=== PATIENT | male | born 1965 | race Caucasian/White ===

== ENCOUNTER 2022-03-09 07:31 | Inpatient (IN) ==
[2022-03-09] MEDS ORDERED: *HR* Heparin 5,000 UNIT/ML VIAL IVP ONE ×2 (07:35→10:27)
[2022-03-09] MEDS ORDERED: *HR* Heparin 5,000 UNIT/ML VIAL IVP PRN ×4 (07:35→10:27)
[2022-03-09] MEDS ORDERED: *HR* Ticagrelor 90 MG TABLET PO ONE (07:35)
[2022-03-09] MEDS ORDERED: *HR* Atropine Sulfate 1 MG/10 ML SYRINGE ONE (07:39)
[2022-03-09] MEDS ORDERED: *HR* Midazolam HCl 2 MG/2 ML VIAL ONE ×3 (07:39→12:13)
[2022-03-09] MEDS ORDERED: *HR* FentaNYL (PF) 100 MCG/2 ML VIAL ONE ×5 (07:39→19:12)
[2022-03-09] MEDS ORDERED: *HR* FentaNYL (PF) 100 MCG/2 ML VIAL IVP ONE (07:44)
[2022-03-09] MEDS ORDERED: Ipratropium/Albuterol Neb 3 ML ONE (07:44)
[2022-03-09] MEDS ORDERED: Ipratropium/Albuterol Neb 3 ML IH ONE (07:44)
[2022-03-09] MEDS ORDERED: Heparin 25,000UNIT/250ML 1/2NS 25,000 UNIT/250 ML IV.SOLN IVC SCH (07:45)
[2022-03-09] MEDS ORDERED: *HR* Ticagrelor 90 MG TABLET ONE (07:49)
[2022-03-09 07:55] LABS: Basophils # 0.1 K/mcL (0.0-0.2); Basophils % 0.7 %; Eosinophils # 0.4 K/mcL (0.0-0.6); Eosinophils % 2.6 %; Hematocrit 50.6 % (37.5-50.1); Hemoglobin 16.5 g/dL (12.9-16.9); Immature Granulocytes % 0.4 % (0-4); Lymphocytes # 4.2 K/mcL (0.6-4.6); Lymphocytes % 25.4 %; Mean Corpuscular HGB Conc 32.6 g/dL (31.6-35.5); Mean Corpuscular Hemoglobin 32.7 pg (28.0-33.3); Mean Corpuscular Volume 100.4 fL (83.0-100.0); Mean Platelet Volume 9.2 fL (9.4-12.4); Monocytes # 1.1 K/mcL (0.0-1.3); Monocytes % 6.7 %; Neutrophils # 10.7 K/mcL (1.6-8.9); Platelet Count 403 K/mcL (140-400); Red Blood Count 5.04 M/mcL (4.19-5.50); Red Cell Distribution Width 14.1 % (11.5-14.5); Segmented Neutrophils % 64.2 %; White Blood Count 16.6 K/mcL (4.3-11.1)
[2022-03-09 08:05] LABS: Activated Partial Thrombo Time 35.6 Seconds (26.0-36.0)
[2022-03-09] MEDS ORDERED: Tirofiban 12.5 MG/250ML 12.5 MG/250 ML BAG ONE (08:06)
[2022-03-09] MEDS ORDERED: D5% in Water 1,000 ML IVC ONE (08:11)
[2022-03-09 08:38] LABS: BUN/Creatinine Ratio 11 (6-26); Blood Urea Nitrogen 9 mg/dL (6-20); Calcium 8.7 mg/dL (8.6-10.3); Carbon Dioxide 28 mEq/L (23-29); Chloride 105 mEq/L (98-107); Glucose 126 mg/dL (70-105); Magnesium 1.8 mg/dL (1.6-2.6); Osmolality,Calculated 288 (280-300); Potassium 4.3 mEq/L (3.5-5.1); Sodium 139 mEq/L (136-145)
[2022-03-09] MEDS ORDERED: niCARdipine 20 MG/200 ML MLS IVC ONE (08:46)
[2022-03-09] MEDS ORDERED: Iopamidol - 370 200 ML INFUS..BTL ONE ×4 (08:53→14:11)
[2022-03-09 09:35] LABS: Troponin I 0.28 ng/mL (< 0.04)
[2022-03-09] MEDS ORDERED: Heparin 1,000 UNITS/500 mL 500 ML ONE ×5 (09:40→15:28)
[2022-03-09] MEDS ORDERED: 0.9 % Sodium Chloride 1,000 ML ONE ×4 (10:04→12:39)
[2022-03-09] MEDS ORDERED: Amiodarone Premix 150 MG/100 ML BAG IVPB ONE (10:08)
[2022-03-09] MEDS ORDERED: Tirofiban 12.5 MG/250ML 12.5 MG/250 ML BAG IVC SCH (10:30)
[2022-03-09] MEDS ORDERED: *HR* Heparin 10,000 UNIT/10 ML VIAL ONE ×2 (12:13→13:39)
[2022-03-09] MEDS ORDERED: Nitroglycerin 1,000 MCG/5 ML VIAL IV ONE (12:13)
[2022-03-09] MEDS ORDERED: Ondansetron 4 MG/2 ML VIAL ONE (12:37)
[2022-03-09] MEDS ORDERED: *HR* Rocuronium Bromide 50 MG/5 ML VIAL ONE ×2 (15:08→16:13)
[2022-03-09] MEDS ORDERED: *HR* Succinylcholine 200 MG/10 ML VIAL IVP ONE (15:08)
[2022-03-09] MEDS ORDERED: EPINEPHrine 1 MG/ML VIAL ONE (15:08)
[2022-03-09] MEDS ORDERED: *HR* Heparin 5,000 UNIT/ML VIAL ONE ×2 (15:23→17:21)
[2022-03-09] MEDS ORDERED: Albumin Human 5% 25.0 GM/500 ML IV.SOLN ONE (15:23)
[2022-03-09] MEDS ORDERED: *HR* Remifentanil 1 MG VIAL IVP ONE (15:26)
[2022-03-09] MEDS ORDERED: *HR* Midazolam HCl 5 MG/5 ML VIAL IVP ONE (15:28)
[2022-03-09] MEDS ORDERED: *HR* Etomidate 40 MG/20 ML VIAL IVP ONE (15:31)
[2022-03-09] MEDS ORDERED: CeFAZolin Syr 2,000MG/20 ML 2,000 MG/20 ML SYRINGE IVPB ONE (16:00)
[2022-03-09 16:45] LABS: ABG Base Excess -6 mEq/L (-2 to 3); ABG Chloride 108 mEq/L (98-107); ABG Glucose 130 mg/dL (60-95); ABG HCO3 20 mEq/L (21-27); ABG Ionized Calcium 1.22 mmol/L (1.15-1.35); ABG Oxygen Saturation 93 % (95-98); ABG PCO2 43 mmHg (35-45); ABG PH 7.29 pH Units (7.32-7.45); ABG PO2 77 mmHg (85-104); ABG TCO2 22 mEq/L (20-26)
[2022-03-09] MEDS ORDERED: *HR* HYDROmorphone PF 0.5 MG/0.5 ML SYRINGE IVP PRN (18:22)
[2022-03-09 18:33] LABS: ABG Base Excess -5 mEq/L (-2 to 3); ABG Chloride 109 mEq/L (98-107); ABG Glucose 131 mg/dL (60-95); ABG HCO3 21 mEq/L (21-27); ABG Ionized Calcium 1.17 mmol/L (1.15-1.35); ABG Oxygen Saturation 99 % (95-98); ABG PCO2 42 mmHg (35-45); ABG PH 7.32 pH Units (7.32-7.45); ABG PO2 138 mmHg (85-104); ABG TCO2 23 mEq/L (20-26)
[2022-03-09] MEDS ORDERED: Sugammadex Sodium 200 MG/2 ML VIAL IV ONE (19:16)
[2022-03-09] MEDS ORDERED: *HR* Norepinephrine 4 MG/4 ML VIAL IVC ONE (20:04)
[2022-03-09] MEDS ORDERED: Ondansetron 4 MG/2 ML VIAL IVP PRN (20:08)
[2022-03-09 20:27] LABS: ABG Base Excess -7 mEq/L (-2 to 3); ABG HCO3 17 mEq/L (21-27); ABG Oxygen Saturation 87 % (95-98); ABG PCO2 29 mmHg (35-45); ABG PH 7.37 pH Units (7.32-7.45); ABG PO2 53 mmHg (85-104); ABG TCO2 18 mEq/L (20-26)
[2022-03-09 20:43] LABS: Basophils # 0.1 K/mcL (0.0-0.2); Basophils % 0.3 %; Hematocrit 35.8 % (37.5-50.1); Hemoglobin 11.7 g/dL (12.9-16.9); Immature Granulocytes % 0.6 % (0-4); Lymphocytes # 3.5 K/mcL (0.6-4.6); Lymphocytes % 16.3 %; Mean Corpuscular HGB Conc 32.7 g/dL (31.6-35.5); Mean Corpuscular Hemoglobin 32.8 pg (28.0-33.3); Mean Corpuscular Volume 100.3 fL (83.0-100.0); Mean Platelet Volume 9.4 fL (9.4-12.4); Monocytes # 1.9 K/mcL (0.0-1.3); Monocytes % 8.8 %; Neutrophils # 15.9 K/mcL (1.6-8.9); Platelet Count 314 K/mcL (140-400); Red Blood Count 3.57 M/mcL (4.19-5.50); White Blood Count 21.6 K/mcL (4.3-11.1)
[2022-03-09 20:44] LABS: ABG Ionized Calcium 1.29 mmol/L (1.15-1.35)
[2022-03-09 20:51] LABS: INR 1.1; Prothrombin Time 11.8 Seconds (9.4-12.1)
[2022-03-09 20:54] LABS: Activated Partial Thrombo Time 51.6 Seconds (26.0-36.0)
[2022-03-09 21:01] LABS: BUN/Creatinine Ratio 14 (6-26); Blood Urea Nitrogen 10 mg/dL (6-20); Calcium 8.7 mg/dL (8.6-10.3); Carbon Dioxide 18 mEq/L (23-29); Chloride 111 mEq/L (98-107); Glucose 123 mg/dL (70-105); Magnesium 1.6 mg/dL (1.6-2.6); Osmolality,Calculated 288 (280-300); Potassium 4.5 mEq/L (3.5-5.1); Sodium 139 mEq/L (136-145)
[2022-03-09] MEDS: *HR* Ticagrelor 90 MG TABLET PO SCH ×2 (22:02→22:04)
[2022-03-09] MEDS ORDERED: Metoclopramide 10 MG/2 ML VIAL IVP ONE (22:23)
[2022-03-09] MEDS ORDERED: Morphine Sulfate 2 MG/ML SYRINGE IVP ONE (22:56)
[2022-03-09] MEDS: Heparin 25,000UNIT/250ML 1/2NS 25,000 UNIT/250 ML IV.SOLN IVC SCH (23:40)
[2022-03-10] MEDS ORDERED: *HR* HYDROcodone/Acet 5/325 mg TABLET PO ONE (03:09)
[2022-03-10] MEDS: *HR* Ticagrelor 90 MG TABLET PO SCH ×4 (03:17→20:39)
[2022-03-10 05:42] LABS: Basophils # 0.1 K/mcL (0.0-0.2); Basophils % 0.3 %; Eosinophils % 0.1 %; Hematocrit 33.1 % (37.5-50.1); Immature Granulocytes % 0.5 % (0-4); Lymphocytes # 2.3 K/mcL (0.6-4.6); Mean Corpuscular HGB Conc 33.2 g/dL (31.6-35.5); Mean Corpuscular Hemoglobin 33.2 pg (28.0-33.3); Mean Platelet Volume 9.8 fL (9.4-12.4); Monocytes # 1.7 K/mcL (0.0-1.3); Monocytes % 9.3 %; Neutrophils # 13.8 K/mcL (1.6-8.9); Platelet Count 269 K/mcL (140-400); Red Blood Count 3.31 M/mcL (4.19-5.50); Red Cell Distribution Width 14.3 % (11.5-14.5); Segmented Neutrophils % 76.8 %; White Blood Count 17.9 K/mcL (4.3-11.1)
[2022-03-10 06:03] LABS: BUN/Creatinine Ratio 13 (6-26); Blood Urea Nitrogen 9 mg/dL (6-20); Calcium 8.3 mg/dL (8.6-10.3); Carbon Dioxide 22 mEq/L (23-29); Chloride 109 mEq/L (98-107); Glucose 124 mg/dL (70-105); Osmolality,Calculated 286 (280-300); Potassium 3.8 mEq/L (3.5-5.1); Sodium 138 mEq/L (136-145)
[2022-03-10] MEDS ORDERED: Albuterol 2.5 MG/3 ML NEBULIZER IH PRN ×2 (07:39→10:37)
[2022-03-10] MEDS ORDERED: Albumin Human 5% 12.5 GM/250 ML IV.SOLN IVC SCH ×2 (07:45→10:37)
[2022-03-10] MEDS ORDERED: *HR* OxyCODONE/APAP 5/325 TABLET PO PRN (08:51)
[2022-03-10] MEDS ORDERED: Aspirin 81 MG TAB.CHEW PO SCH (09:00)
[2022-03-10] MEDS ORDERED: *HR* Heparin 5,000 UNIT/ML VIAL IVP PRN ×4 (10:37)
[2022-03-10] MEDS ORDERED: Ondansetron 4 MG/2 ML VIAL IVP PRN (10:37)
[2022-03-10] MEDS ORDERED: Naloxone 0.4 MG/ML INJ IVP PRN (10:37)
[2022-03-10] MEDS: CeFAZolin 2 GM/120 ML BAG IVPB SCH ×2 (12:22→20:38)
[2022-03-10] MEDS: Famotidine 20 MG/2 ML VIAL IVP SCH ×2 (12:23→17:47)
[2022-03-10] MEDS ORDERED: *HR* Ticagrelor 90 MG TABLET PO ONE (13:00)
[2022-03-10] MEDS ORDERED: Furosemide 40 MG/4 ML VIAL IVP ONE ×2 (13:25→20:00)
[2022-03-10] MEDS: *HR* Digoxin 0.5 MG/2 ML AMPUL IVP SCH ×2 (15:42→17:47)
[2022-03-10] MEDS: *HR* OxyCODONE/APAP 5/325 TABLET PO PRN ×2 (18:19→22:24)
[2022-03-10] MEDS: Heparin 25,000UNIT/250ML 1/2NS 25,000 UNIT/250 ML IV.SOLN IVC SCH (20:31)
[2022-03-11] MEDS: *HR* Digoxin 0.5 MG/2 ML AMPUL IVP SCH ×2 (01:27→05:32)
[2022-03-11] MEDS: CeFAZolin 2 GM/120 ML BAG IVPB SCH (04:03)
[2022-03-11] MEDS: Heparin 25,000UNIT/250ML 1/2NS 25,000 UNIT/250 ML IV.SOLN IVC SCH (04:03)
[2022-03-11 05:10] LABS: Heparin anti-factor XA UFH 0.31 IU/mL (0.30-0.70)
[2022-03-11 05:12] LABS: INR 1.2; Prothrombin Time 13.6 Seconds (9.4-12.1)
[2022-03-11 05:20] LABS: Basophils # 0.1 K/mcL (0.0-0.2); Basophils % 0.4 %; Hematocrit 29.3 % (37.5-50.1); Immature Granulocytes % 0.5 % (0-4); Lymphocytes # 2.1 K/mcL (0.6-4.6); Lymphocytes % 9.7 %; Mean Corpuscular HGB Conc 34.1 g/dL (31.6-35.5); Mean Corpuscular Hemoglobin 33.4 pg (28.0-33.3); Mean Platelet Volume 10.5 fL (9.4-12.4); Monocytes # 1.8 K/mcL (0.0-1.3); Monocytes % 8.5 %; Neutrophils # 17.3 K/mcL (1.6-8.9); Platelet Count 240 K/mcL (140-400); Red Blood Count 2.99 M/mcL (4.19-5.50); Red Cell Distribution Width 14.3 % (11.5-14.5); Segmented Neutrophils % 80.9 %; White Blood Count 21.4 K/mcL (4.3-11.1)
[2022-03-11] MEDS: Famotidine 20 MG/2 ML VIAL IVP SCH ×2 (05:32→18:09)
[2022-03-11 05:40] LABS: Alanine Aminotransferase 45 Units/L (7-52); Albumin 3.1 g/dL (3.5-5.7); Albumin/Globulin Ratio 1.6 (1.1-2.2); Alkaline Phosphatase 38 Units/L (34-104); Aspartate Amino Transferase 201 Units/L (13-39); BUN/Creatinine Ratio 17 (6-26); Bilirubin,Total 2.1 mg/dL (0.3-1.0); Blood Urea Nitrogen 11 mg/dL (6-20); Calcium 8.2 mg/dL (8.6-10.3); Carbon Dioxide 22 mEq/L (23-29); Chloride 105 mEq/L (98-107); Chol/HDL Ratio 3.7 (0-4.9); Cholesterol 114 mg/dL (< 200); Glucose 109 mg/dL (70-105); HDL Cholesterol 31 mg/dL (40-59); LDL Cholesterol,Calculated 59 mg/dL (< 100); Osmolality,Calculated 280 (280-300); Potassium 3.9 mEq/L (3.5-5.1); Sodium 135 mEq/L (136-145); Total Protein 5.1 g/dL (6.4-8.9); Triglycerides 119 mg/dL (< 150)
[2022-03-11] MEDS ORDERED: 0.9 % Sodium Chloride 1,000 ML ONE ×7 (07:22→21:50)
[2022-03-11] MEDS: *HR* Ticagrelor 90 MG TABLET PO SCH ×2 (09:17→20:41)
[2022-03-11] MEDS: Aspirin 81 MG TAB.CHEW PO SCH (09:17)
[2022-03-11] MEDS ORDERED: Nitroglycerin 1,000 MCG/5 ML VIAL IV ONE (11:07)
[2022-03-11] MEDS ORDERED: *HR* Heparin 10,000 UNIT/10 ML VIAL ONE (11:07)
[2022-03-11] MEDS ORDERED: Heparin 1,000 UNITS/500 mL 500 ML ONE (11:50)
[2022-03-11] MEDS ORDERED: D5% in Water 250 ML ONE (16:31)
[2022-03-11] MEDS ORDERED: 0.9 % Sodium Chloride 250 ML IVC ONE ×6 (17:53→23:25)
[2022-03-11] MEDS: Acetaminophen 325 MG TABLET PO PRN (18:18)
[2022-03-11] MEDS: Cefepime HCl 2,000 MG in 0.9 % Sodium Chloride 10 ML IVP SCH (18:29)
[2022-03-11 19:09] LABS: Bacteria,Urine Few per hpf (None-Few); Bilirubin,Urine Negative (Negative); Blood,Urine Trace (Negative); Calcium Oxalate Crystals,Urine Present per hpf; Clarity,Urine Clear (Clear); Color,Urine Yellow (Yellow); Glucose,Urine (UA) Normal (Normal); Ketones,Urine 60 mg/dL (Negative); Leukocyte Esterase,Urine Small (Negative); Mucus,Urine Few per lpf (None-Few); Nitrite,Urine Negative (Negative); Protein,Urine Trace mg/dL (Neg-Trace); Specific Gravity,Urine 1.015 (1.010-1.025); Urobilinogen,Urine >=8.0 mg/dL (Normal)
[2022-03-11 19:43] LABS: Influenza A PCR Negative (Negative); Influenza B PCR Negative (Negative); Resp. Syncytial Virus PCR Negative (Negative)
[2022-03-11 19:45] LABS: SARS-CoV-2 by PCR (In House) Positive (Negative)
[2022-03-11] MEDS: *HR* HYDROcodone/Acet 5/325 mg TABLET PO PRN (20:41)
[2022-03-12] MEDS ORDERED: 0.9 % Sodium Chloride 250 ML IVC ONE ×4 (00:39→03:52)
[2022-03-12] MEDS ORDERED: 0.9 % Sodium Chloride 1,000 ML ONE ×2 (01:18→15:40)
[2022-03-12] MEDS: Cefepime HCl 2,000 MG in 0.9 % Sodium Chloride 10 ML IVP SCH ×3 (01:22→17:54)
[2022-03-12] MEDS: Famotidine 20 MG/2 ML VIAL IVP SCH ×2 (05:09→17:54)
[2022-03-12 06:05] LABS: Basophils % 0.3 %; Eosinophils % 0.1 %; Hematocrit 20.5 % (37.5-50.1); Immature Granulocytes % 0.6 % (0-4); Lymphocytes # 1.8 K/mcL (0.6-4.6); Lymphocytes % 13.2 %; Mean Corpuscular HGB Conc 33.7 g/dL (31.6-35.5); Mean Corpuscular Volume 98.1 fL (83.0-100.0); Mean Platelet Volume 10.5 fL (9.4-12.4); Monocytes % 6.9 %; Neutrophils # 10.9 K/mcL (1.6-8.9); Platelet Count 157 K/mcL (140-400); Red Blood Count 2.09 M/mcL (4.19-5.50); Red Cell Distribution Width 14.3 % (11.5-14.5); Segmented Neutrophils % 78.9 %; White Blood Count 13.9 K/mcL (4.3-11.1)
[2022-03-12 06:07] LABS: Hemoglobin 6.9 g/dL (12.9-16.9)
[2022-03-12 07:26] LABS: BUN/Creatinine Ratio 26 (6-26); Blood Urea Nitrogen 8 mg/dL (6-20); Calcium 5.6 mg/dL (8.6-10.3); Carbon Dioxide 15 mEq/L (23-29); Chloride 117 mEq/L (98-107); Glucose 79 mg/dL (70-105); Magnesium 1.1 mg/dL (1.6-2.6); Osmolality,Calculated 281 (280-300); Potassium 2.7 mEq/L (3.5-5.1); Sodium 137 mEq/L (136-145)
[2022-03-12] MEDS: *HR* OxyCODONE Immed Rel 5 MG TABLET PO PRN (07:46)
[2022-03-12] MEDS: Aspirin 81 MG TAB.CHEW PO SCH (07:46)
[2022-03-12] MEDS: *HR* Ticagrelor 90 MG TABLET PO SCH ×2 (07:46→19:54)
[2022-03-12] MEDS: Calcium Gluconate 1gm/50mL 1 GM/50 ML BAG IVPB SCH ×2 (07:46→09:28)
[2022-03-12] MEDS: Heparin 25,000UNIT/250ML 1/2NS 25,000 UNIT/250 ML IV.SOLN IVC SCH ×2 (08:29→19:38)
[2022-03-12] MEDS ORDERED: 0.9 % Sodium Chloride 250 ML IVC PRN (10:14)
[2022-03-12 13:12] LABS: Hematocrit 30.3 % (37.5-50.1)
[2022-03-12 13:16] LABS: Hemoglobin 10.2 g/dL (12.9-16.9)
[2022-03-12 13:18] LABS: VBG Ionized Calcium 1.19 mmol/L (1.15-1.35)
[2022-03-12 14:01] LABS: BUN/Creatinine Ratio 19 (6-26); Blood Urea Nitrogen 10 mg/dL (6-20); Calcium 7.9 mg/dL (8.6-10.3); Carbon Dioxide 22 mEq/L (23-29); Chloride 107 mEq/L (98-107); Glucose 110 mg/dL (70-105); Magnesium 1.9 mg/dL (1.6-2.6); Osmolality,Calculated 278 (280-300); Potassium 3.7 mEq/L (3.5-5.1); Sodium 134 mEq/L (136-145)
[2022-03-12] MEDS ORDERED: Morphine Sulfate 2 MG/ML SYRINGE IVP ONE (19:18)
[2022-03-13] MEDS: Cefepime HCl 2,000 MG in 0.9 % Sodium Chloride 10 ML IVP SCH ×3 (03:54→15:45)
[2022-03-13 04:32] LABS: Basophils % 0.3 %; Eosinophils % 0.3 %; Hematocrit 26.4 % (37.5-50.1); Hemoglobin 9.2 g/dL (12.9-16.9); Immature Granulocytes % 0.7 % (0-4); Lymphocytes # 2.2 K/mcL (0.6-4.6); Lymphocytes % 16.2 %; Mean Corpuscular HGB Conc 34.8 g/dL (31.6-35.5); Mean Corpuscular Hemoglobin 32.4 pg (28.0-33.3); Mean Platelet Volume 10.8 fL (9.4-12.4); Monocytes # 1.1 K/mcL (0.0-1.3); Monocytes % 8.1 %; Neutrophils # 10.3 K/mcL (1.6-8.9); Platelet Count 201 K/mcL (140-400); Red Blood Count 2.84 M/mcL (4.19-5.50); Segmented Neutrophils % 74.4 %; White Blood Count 13.8 K/mcL (4.3-11.1)
[2022-03-13 04:53] LABS: BUN/Creatinine Ratio 16 (6-26); Blood Urea Nitrogen 8 mg/dL (6-20); Calcium 7.6 mg/dL (8.6-10.3); Carbon Dioxide 20 mEq/L (23-29); Chloride 105 mEq/L (98-107); Glucose 95 mg/dL (70-105); Osmolality,Calculated 272 (280-300); Potassium 3.3 mEq/L (3.5-5.1); Sodium 132 mEq/L (136-145); Troponin I 27.58 ng/mL (< 0.04)
[2022-03-13] MEDS: Heparin 25,000UNIT/250ML 1/2NS 25,000 UNIT/250 ML IV.SOLN IVC SCH (05:01)
[2022-03-13] MEDS: Famotidine 20 MG/2 ML VIAL IVP SCH ×2 (05:01→15:44)
[2022-03-13] MEDS: *HR* OxyCODONE Immed Rel 5 MG TABLET PO PRN ×2 (05:28→21:07)
[2022-03-13] MEDS: *HR* Ticagrelor 90 MG TABLET PO SCH ×2 (07:42→19:46)
[2022-03-13] MEDS: Aspirin 81 MG TAB.CHEW PO SCH (07:42)
[2022-03-13] MEDS: carvediloL 6.25 MG TABLET PO SCH ×2 (08:50→15:44)
[2022-03-13] MEDS ORDERED: carvediloL 6.25 MG TABLET PO SCH (17:00)
[2022-03-14] MEDS: Heparin 25,000UNIT/250ML 1/2NS 25,000 UNIT/250 ML IV.SOLN IVC SCH ×2 (00:51→19:08)
[2022-03-14] MEDS: Cefepime HCl 2,000 MG in 0.9 % Sodium Chloride 10 ML IVP SCH ×3 (00:51→17:21)
[2022-03-14] MEDS: *HR* HYDROcodone/Acet 5/325 mg TABLET PO PRN ×3 (03:09→16:13)
[2022-03-14] MEDS: Famotidine 20 MG/2 ML VIAL IVP SCH ×2 (03:10→17:23)
[2022-03-14 04:58] LABS: Basophils # 0.1 K/mcL (0.0-0.2); Basophils % 0.6 %; Eosinophils # 0.2 K/mcL (0.0-0.6); Eosinophils % 1.4 %; Hematocrit 25.8 % (37.5-50.1); Hemoglobin 9.1 g/dL (12.9-16.9); Immature Granulocytes % 0.6 % (0-4); Lymphocytes # 3.1 K/mcL (0.6-4.6); Lymphocytes % 24.8 %; Mean Corpuscular HGB Conc 35.3 g/dL (31.6-35.5); Mean Corpuscular Hemoglobin 32.7 pg (28.0-33.3); Mean Corpuscular Volume 92.8 fL (83.0-100.0); Mean Platelet Volume 10.8 fL (9.4-12.4); Monocytes # 1.3 K/mcL (0.0-1.3); Monocytes % 10.2 %; Neutrophils # 7.7 K/mcL (1.6-8.9); Nucleated Red Blood Cells 0.2 /100 WBC (0); Platelet Count 228 K/mcL (140-400); Red Blood Count 2.78 M/mcL (4.19-5.50); Red Cell Distribution Width 16.1 % (11.5-14.5); Segmented Neutrophils % 62.4 %; White Blood Count 12.3 K/mcL (4.3-11.1)
[2022-03-14 05:10] LABS: BUN/Creatinine Ratio 18 (6-26); Blood Urea Nitrogen 9 mg/dL (6-20); Calcium 7.8 mg/dL (8.6-10.3); Carbon Dioxide 20 mEq/L (23-29); Chloride 104 mEq/L (98-107); Glucose 105 mg/dL (70-105); Osmolality,Calculated 273 (280-300); Potassium 3.2 mEq/L (3.5-5.1); Sodium 132 mEq/L (136-145)
[2022-03-14] MEDS: carvediloL 6.25 MG TABLET PO SCH ×2 (08:25→08:32)
[2022-03-14] MEDS: Aspirin 81 MG TAB.CHEW PO SCH (08:31)
[2022-03-14] MEDS: *HR* Ticagrelor 90 MG TABLET PO SCH ×2 (08:31→19:50)
[2022-03-14] MEDS ORDERED: carvediloL 6.25 MG TABLET PO ONE (18:00)
[2022-03-14] MEDS ORDERED: Chloraseptic Spray 177 ML BOTTLE MM PRN (18:45)
[2022-03-14] MEDS: *HR* OxyCODONE/APAP 5/325 TABLET PO PRN (21:26)
[2022-03-15] MEDS: *HR* HYDROcodone/Acet 5/325 mg TABLET PO PRN (01:54)
[2022-03-15] MEDS: Cefepime HCl 2,000 MG in 0.9 % Sodium Chloride 10 ML IVP SCH ×3 (01:54→17:29)
[2022-03-15] MEDS: Famotidine 20 MG/2 ML VIAL IVP SCH ×2 (05:28→17:30)
[2022-03-15] MEDS: *HR* OxyCODONE/APAP 5/325 TABLET PO PRN ×2 (06:19→14:41)
[2022-03-15 07:37] LABS: BUN/Creatinine Ratio 20 (6-26); Blood Urea Nitrogen 10 mg/dL (6-20); Calcium 8.2 mg/dL (8.6-10.3); Carbon Dioxide 20 mEq/L (23-29); Chloride 105 mEq/L (98-107); Glucose 92 mg/dL (70-105); Osmolality,Calculated 275 (280-300); Potassium 4.4 mEq/L (3.5-5.1); Sodium 133 mEq/L (136-145)
[2022-03-15] MEDS: Metoprolol XL (24 HR) Succ 25 MG TAB.ER.24H PO SCH (08:09)
[2022-03-15] MEDS: *HR* Ticagrelor 90 MG TABLET PO SCH ×2 (08:09→20:51)
[2022-03-15] MEDS: Aspirin 81 MG TAB.CHEW PO SCH (08:10)
[2022-03-15 11:12] LABS: Basophils # 0.1 K/mcL (0.0-0.2); Basophils % 0.7 %; Eosinophils # 0.2 K/mcL (0.0-0.6); Eosinophils % 1.3 %; Hematocrit 28.5 % (37.5-50.1); Hemoglobin 9.5 g/dL (12.9-16.9); Lymphocytes # 3.1 K/mcL (0.6-4.6); Lymphocytes % 22.4 %; Mean Corpuscular HGB Conc 33.3 g/dL (31.6-35.5); Mean Corpuscular Hemoglobin 32.2 pg (28.0-33.3); Mean Corpuscular Volume 96.6 fL (83.0-100.0); Mean Platelet Volume 10.8 fL (9.4-12.4); Monocytes # 1.6 K/mcL (0.0-1.3); Monocytes % 11.4 %; Neutrophils # 8.8 K/mcL (1.6-8.9); Nucleated Red Blood Cells 0.2 /100 WBC (0); Platelet Count 295 K/mcL (140-400); Red Blood Count 2.95 M/mcL (4.19-5.50); Red Cell Distribution Width 16.6 % (11.5-14.5); Segmented Neutrophils % 63.2 %; White Blood Count 13.9 K/mcL (4.3-11.1)
[2022-03-15] MEDS: *HR* OxyCODONE Immed Rel 5 MG TABLET PO PRN (22:23)
[2022-03-16] MEDS: Cefepime HCl 2,000 MG in 0.9 % Sodium Chloride 10 ML IVP SCH ×3 (01:52→18:08)
[2022-03-16 06:55] LABS: BUN/Creatinine Ratio 15 (6-26); Blood Urea Nitrogen 9 mg/dL (6-20); Calcium 8.4 mg/dL (8.6-10.3); Carbon Dioxide 23 mEq/L (23-29); Chloride 103 mEq/L (98-107); Glucose 92 mg/dL (70-105); Osmolality,Calculated 276 (280-300); Potassium 3.8 mEq/L (3.5-5.1); Sodium 134 mEq/L (136-145)
[2022-03-16] MEDS: Aspirin 81 MG TAB.CHEW PO SCH (07:48)
[2022-03-16] MEDS: Metoprolol XL (24 HR) Succ 25 MG TAB.ER.24H PO SCH ×2 (07:48→21:28)
[2022-03-16] MEDS: *HR* Ticagrelor 90 MG TABLET PO SCH ×2 (07:48→21:27)
[2022-03-16] MEDS: Famotidine 20 MG/2 ML VIAL IVP SCH ×2 (07:48→18:08)
[2022-03-16] MEDS: Heparin 25,000UNIT/250ML 1/2NS 25,000 UNIT/250 ML IV.SOLN IVC SCH (07:49)
[2022-03-16] MEDS ORDERED: Furosemide 20 MG TABLET PO PRN (10:07)
[2022-03-16] MEDS: *HR* OxyCODONE/APAP 5/325 TABLET PO PRN ×2 (11:14→21:29)
[2022-03-16] MEDS: Furosemide 20 MG TABLET PO SCH (18:09)
[2022-03-17] MEDS: Cefepime HCl 2,000 MG in 0.9 % Sodium Chloride 10 ML IVP SCH ×3 (01:21→17:27)
[2022-03-17] MEDS: Famotidine 20 MG/2 ML VIAL IVP SCH ×2 (06:43→17:28)
[2022-03-17] MEDS: *HR* Ticagrelor 90 MG TABLET PO SCH ×2 (08:07→20:35)
[2022-03-17] MEDS: Aspirin 81 MG TAB.CHEW PO SCH (08:08)
[2022-03-17] MEDS: Furosemide 20 MG TABLET PO SCH (08:08)
[2022-03-17] MEDS: Metoprolol XL (24 HR) Succ 25 MG TAB.ER.24H PO SCH ×2 (08:08→20:35)
[2022-03-17 09:54] LABS: BUN/Creatinine Ratio 18 (6-26); Blood Urea Nitrogen 11 mg/dL (6-20); Calcium 8.2 mg/dL (8.6-10.3); Carbon Dioxide 20 mEq/L (23-29); Chloride 106 mEq/L (98-107); Glucose 137 mg/dL (70-105); Magnesium 1.8 mg/dL (1.6-2.6); Osmolality,Calculated 282 (280-300); Potassium 3.8 mEq/L (3.5-5.1); Sodium 135 mEq/L (136-145)
[2022-03-17] MEDS: Nicotine 21 MG PATCH.TD24 TD SCH (10:16)
[2022-03-17 10:57] LABS: Basophils # 0.1 K/mcL (0.0-0.2); Basophils % 0.6 %; Eosinophils # 0.2 K/mcL (0.0-0.6); Eosinophils % 1.2 %; Hematocrit 29.2 % (37.5-50.1); Hemoglobin 9.8 g/dL (12.9-16.9); Lymphocytes % 13.9 %; Mean Corpuscular HGB Conc 33.6 g/dL (31.6-35.5); Mean Corpuscular Hemoglobin 32.8 pg (28.0-33.3); Mean Corpuscular Volume 97.7 fL (83.0-100.0); Mean Platelet Volume 10.6 fL (9.4-12.4); Monocytes # 1.8 K/mcL (0.0-1.3); Neutrophils # 10.5 K/mcL (1.6-8.9); Nucleated Red Blood Cells 0.3 /100 WBC (0); Red Blood Count 2.99 M/mcL (4.19-5.50); Red Cell Distribution Width 17.9 % (11.5-14.5); Segmented Neutrophils % 71.3 %; White Blood Count 14.6 K/mcL (4.3-11.1)
[2022-03-17 11:04] LABS: Platelet Count 439 K/mcL (140-400)
[2022-03-17 14:37] LABS: INR 1.2; Prothrombin Time 13.1 Seconds (9.4-12.1)
[2022-03-17] MEDS ORDERED: Warfarin perPT PO PRN (18:00)
[2022-03-17] MEDS ORDERED: *HR* Warfarin 5 MG TABLET PO ONE (18:00)
[2022-03-17] MEDS: Acetaminophen 325 MG TABLET PO PRN (20:44)
[2022-03-18 02:08] LABS: Basophils # 0.1 K/mcL (0.0-0.2); Basophils % 0.6 %; Eosinophils # 0.2 K/mcL (0.0-0.6); Eosinophils % 1.6 %; Hematocrit 30.1 % (37.5-50.1); Immature Granulocytes % 1.1 % (0-4); Lymphocytes # 3.4 K/mcL (0.6-4.6); Lymphocytes % 23.5 %; Mean Corpuscular HGB Conc 33.2 g/dL (31.6-35.5); Mean Corpuscular Hemoglobin 32.7 pg (28.0-33.3); Mean Corpuscular Volume 98.4 fL (83.0-100.0); Mean Platelet Volume 10.3 fL (9.4-12.4); Monocytes # 1.4 K/mcL (0.0-1.3); Monocytes % 9.7 %; Neutrophils # 9.2 K/mcL (1.6-8.9); Nucleated Red Blood Cells 0.2 /100 WBC (0); Platelet Count 538 K/mcL (140-400); Red Blood Count 3.06 M/mcL (4.19-5.50); Red Cell Distribution Width 18.5 % (11.5-14.5); Segmented Neutrophils % 63.5 %; White Blood Count 14.5 K/mcL (4.3-11.1)
[2022-03-18 02:15] LABS: INR 1.2; Prothrombin Time 12.9 Seconds (9.4-12.1)
[2022-03-18 02:29] LABS: BUN/Creatinine Ratio 22 (6-26); Blood Urea Nitrogen 10 mg/dL (6-20); Calcium 8.3 mg/dL (8.6-10.3); Carbon Dioxide 20 mEq/L (23-29); Chloride 107 mEq/L (98-107); Glucose 89 mg/dL (70-105); Magnesium 2.1 mg/dL (1.6-2.6); Osmolality,Calculated 283 (280-300); Potassium 3.8 mEq/L (3.5-5.1); Sodium 137 mEq/L (136-145)
[2022-03-18] MEDS: Famotidine 20 MG/2 ML VIAL IVP SCH ×2 (05:17→18:37)
[2022-03-18] MEDS: Furosemide 20 MG TABLET PO SCH (10:09)
[2022-03-18] MEDS: Nicotine 21 MG PATCH.TD24 TD SCH (10:09)
[2022-03-18] MEDS: Metoprolol XL (24 HR) Succ 25 MG TAB.ER.24H PO SCH ×2 (10:09→20:39)
[2022-03-18] MEDS: Aspirin 81 MG TAB.CHEW PO SCH (10:09)
[2022-03-18] MEDS: *HR* Ticagrelor 90 MG TABLET PO SCH ×2 (10:09→20:38)
[2022-03-18] MEDS ORDERED: HydrOXYzine SYP 10 MG/5 ML UDC PO PRN (12:16)
[2022-03-18] MEDS ORDERED: *HR* Warfarin 5 MG TABLET PO ONE (18:00)
[2022-03-18] MEDS ORDERED: *HR* Warfarin 5 MG TABLET ONE (18:34)
[2022-03-18] MEDS ORDERED: Famotidine 20 MG/2 ML VIAL ONE (18:35)
[2022-03-18] MEDS ORDERED: Metoprolol XL (24 HR) Succ 25 MG TAB.ER.24H PO ONE (19:50)
[2022-03-18] MEDS ORDERED: *HR* Ticagrelor 90 MG TABLET ONE (19:50)
[2022-03-19] MEDS: Famotidine 20 MG/2 ML VIAL IVP SCH ×2 (04:40→17:46)
[2022-03-19 06:39] LABS: INR 1.7; Prothrombin Time 18.9 Seconds (9.4-12.1)
[2022-03-19] MEDS: Aspirin 81 MG TAB.CHEW PO SCH (08:52)
[2022-03-19] MEDS: Metoprolol XL (24 HR) Succ 25 MG TAB.ER.24H PO SCH ×2 (08:52→21:26)
[2022-03-19] MEDS: Nicotine 21 MG PATCH.TD24 TD SCH (08:52)
[2022-03-19] MEDS: *HR* Ticagrelor 90 MG TABLET PO SCH ×2 (08:53→21:40)
[2022-03-19] MEDS: Furosemide 20 MG TABLET PO SCH (08:53)
[2022-03-19] MEDS: *HR* OxyCODONE Immed Rel 5 MG TABLET PO PRN ×2 (12:47→18:51)
[2022-03-19] MEDS: *HR* HYDROcodone/Acet 5/325 mg TABLET PO PRN (17:46)
[2022-03-19] MEDS ORDERED: *HR* Warfarin 3 MG TABLET PO ONE (18:00)
[2022-03-20 01:56] LABS: APTT (LE Anticoag) 56 sec (32-48); Diluted Russell Viper Venom 31 sec (33-44); LE APTT D Heparin Neutralized 47 sec (32-48); LE Coag Reptilase Time 16.8 sec (<=21.9); PT (LE-Anticoag) 13.5 sec (12.0-15.5); Thrombin Time 20.7 sec (14.7-19.5)
[2022-03-20] MEDS: *HR* HYDROcodone/Acet 5/325 mg TABLET PO PRN (05:27)
[2022-03-20] MEDS: Famotidine 20 MG/2 ML VIAL IVP SCH (05:28)
[2022-03-20 06:11] LABS: Basophils # 0.1 K/mcL (0.0-0.2); Basophils % 0.7 %; Eosinophils # 0.4 K/mcL (0.0-0.6); Eosinophils % 2.3 %; Hematocrit 33.8 % (37.5-50.1); Hemoglobin 10.8 g/dL (12.9-16.9); Immature Granulocytes % 1.1 % (0-4); Lymphocytes # 4.1 K/mcL (0.6-4.6); Mean Corpuscular Hemoglobin 32.2 pg (28.0-33.3); Mean Corpuscular Volume 100.9 fL (83.0-100.0); Mean Platelet Volume 9.8 fL (9.4-12.4); Monocytes # 1.3 K/mcL (0.0-1.3); Monocytes % 8.4 %; Neutrophils # 9.7 K/mcL (1.6-8.9); Platelet Count 730 K/mcL (140-400); Red Blood Count 3.35 M/mcL (4.19-5.50); Red Cell Distribution Width 18.5 % (11.5-14.5); Segmented Neutrophils % 61.5 %; White Blood Count 15.8 K/mcL (4.3-11.1)
[2022-03-20 06:18] LABS: INR 2.4; Prothrombin Time 26.2 Seconds (9.4-12.1)
[2022-03-20 06:29] LABS: BUN/Creatinine Ratio 21 (6-26); Blood Urea Nitrogen 13 mg/dL (6-20); Calcium 8.7 mg/dL (8.6-10.3); Carbon Dioxide 24 mEq/L (23-29); Chloride 105 mEq/L (98-107); Glucose 91 mg/dL (70-105); Osmolality,Calculated 280 (280-300); Potassium 3.7 mEq/L (3.5-5.1); Sodium 135 mEq/L (136-145)
[2022-03-20] MEDS: Aspirin 81 MG TAB.CHEW PO SCH (09:24)
[2022-03-20] MEDS: Metoprolol XL (24 HR) Succ 25 MG TAB.ER.24H PO SCH ×2 (09:25→22:13)
[2022-03-20] MEDS: Furosemide 20 MG TABLET PO SCH (09:25)
[2022-03-20] MEDS: Nicotine 21 MG PATCH.TD24 TD SCH (09:26)
[2022-03-20] MEDS: *HR* Ticagrelor 90 MG TABLET PO SCH ×2 (09:40→22:22)
[2022-03-20] MEDS ORDERED: *HR* Warfarin 3 MG TABLET PO ONE (18:00)
[2022-03-20] MEDS: Acetaminophen 325 MG TABLET PO PRN (22:22)
[2022-03-20] MEDS: Famotidine 20 MG TABLET PO SCH (22:22)
[2022-03-21 02:06] LABS: Prothrombin Time 21.7 Seconds (9.4-12.1)
[2022-03-21] MEDS: Furosemide 20 MG TABLET PO SCH (08:01)
[2022-03-21] MEDS: Metoprolol XL (24 HR) Succ 25 MG TAB.ER.24H PO SCH ×2 (08:07→21:55)
[2022-03-21] MEDS: Aspirin 81 MG TAB.CHEW PO SCH (08:07)
[2022-03-21] MEDS: Famotidine 20 MG TABLET PO SCH ×2 (08:07→21:55)
[2022-03-21] MEDS: Nicotine 21 MG PATCH.TD24 TD SCH (08:07)
[2022-03-21] MEDS: *HR* Ticagrelor 90 MG TABLET PO SCH ×2 (08:08→21:55)
[2022-03-21] MEDS: *HR* HYDROcodone/Acet 5/325 mg TABLET PO PRN (11:35)
[2022-03-21] MEDS ORDERED: *HR* HYDROcodone/Acet 5/325 mg TABLET PO PRN (11:46)
[2022-03-21] MEDS ORDERED: *HR* Digoxin 0.5 MG/2 ML AMPUL IVP ONE (17:45)
[2022-03-21] MEDS ORDERED: *HR* Warfarin 4 MG TABLET PO ONE (18:00)
[2022-03-21] MEDS: *HR* Digoxin 0.5 MG/2 ML AMPUL IVP SCH (21:56)
[2022-03-22 02:14] LABS: INR 2.4
[2022-03-22] MEDS: *HR* Digoxin 0.5 MG/2 ML AMPUL IVP SCH (05:40)
[2022-03-22] MEDS: Metoprolol XL (24 HR) Succ 25 MG TAB.ER.24H PO SCH (10:10)
[2022-03-22] MEDS: Aspirin 81 MG TAB.CHEW PO SCH (10:11)
[2022-03-22] MEDS: *HR* Ticagrelor 90 MG TABLET PO SCH (10:11)
[2022-03-22] MEDS: Nicotine 21 MG PATCH.TD24 TD SCH (10:11)
[2022-03-22] MEDS: Famotidine 20 MG TABLET PO SCH (10:12)
[2022-03-22] MEDS: Furosemide 20 MG TABLET PO SCH (10:20)
[2022-03-22 12:36] VITALS: BP 88/60; PULSE 103; TEMP 98; O2SAT 95
[2022-03-22] MEDS ORDERED: *HR* Warfarin 4 MG TABLET PO ONE (18:00)
== END 2022-03-22 13:55 | DRG 270 ==
LOC: EMEROOARM 07:31 → ICNU 07:51 → SUATTDRO 10:41 → 2NNU 03-15 16:03 → 2ANU 03-18 12:01
PROVIDERS: ADMIT Family Medicine; ATTEND Hospitalist

== ENCOUNTER 2022-05-11 13:37 | Inpatient (IN) ==
[2022-05-11] MEDS ORDERED: Naloxone 0.4 MG/ML INJ IVP PRN (16:20)
[2022-05-11] MEDS ORDERED: Ondansetron 4 MG/2 ML VIAL IVP PRN (16:20)
[2022-05-11] MEDS ORDERED: Albumin 25% 25gram/100mL 25 GM/100 ML IV.SOLN IVPB ONE (16:22)
[2022-05-11] MEDS ORDERED: Furosemide 40 MG/4 ML VIAL IVP ONE (16:22)
[2022-05-11 16:55] LABS: Basophils # 0.1 K/mcL (0.0-0.2); Basophils % 0.8 %; Eosinophils # 0.1 K/mcL (0.0-0.6); Eosinophils % 0.9 %; Hematocrit 37.2 % (37.5-50.1); Hemoglobin 12.1 g/dL (12.9-16.9); Immature Granulocytes % 0.2 % (0-4); Lymphocytes # 4.1 K/mcL (0.6-4.6); Lymphocytes % 47.4 %; Mean Corpuscular HGB Conc 32.5 g/dL (31.6-35.5); Mean Corpuscular Volume 95.4 fL (83.0-100.0); Mean Platelet Volume 10.4 fL (9.4-12.4); Monocytes # 0.8 K/mcL (0.0-1.3); Monocytes % 8.9 %; Neutrophils # 3.6 K/mcL (1.6-8.9); Platelet Count 223 K/mcL (140-400); Red Cell Distribution Width 14.6 % (11.5-14.5); Segmented Neutrophils % 41.8 %; White Blood Count 8.6 K/mcL (4.3-11.1)
[2022-05-11 17:01] LABS: INR 1.5; Prothrombin Time 16.4 Seconds (9.4-12.1)
[2022-05-11] MEDS ORDERED: *HR* Heparin 5,000 UNIT/ML VIAL IVP PRN (17:02)
[2022-05-11 17:18] LABS: Alanine Aminotransferase 229 Units/L (7-52); Albumin 3.5 g/dL (3.5-5.7); Albumin/Globulin Ratio 1.5 (1.1-2.2); Alkaline Phosphatase 128 Units/L (34-104); Aspartate Amino Transferase 166 Units/L (13-39); BUN/Creatinine Ratio 15 (6-26); Bilirubin,Total 2.8 mg/dL (0.3-1.0); Blood Urea Nitrogen 12 mg/dL (6-20); Calcium 8.8 mg/dL (8.6-10.3); Carbon Dioxide 19 mEq/L (23-29); Chloride 104 mEq/L (98-107); Globulin 2.4 g/dL (2.4-3.5); Glucose 83 mg/dL (70-105); Osmolality,Calculated 275 (280-300); Potassium 3.8 mEq/L (3.5-5.1); Sodium 133 mEq/L (136-145); Total Protein 5.9 g/dL (6.4-8.9); Troponin I 0.05 ng/mL (< 0.04)
[2022-05-11 17:26] LABS: Heparin anti-factor XA UFH < 0.04 IU/mL (0.30-0.70)
[2022-05-11] MEDS: *HR* Digoxin 0.125 MG TABLET PO SCH (17:46)
[2022-05-11] MEDS ORDERED: *HR* Warfarin 4 MG TABLET PO ONE (18:00)
[2022-05-11] MEDS ORDERED: Warfarin perPT PO PRN (18:00)
[2022-05-11] MEDS: Heparin 25,000UNIT/250ML 1/2NS 25,000 UNIT/250 ML IV.SOLN IVC SCH (18:04)
[2022-05-11] MEDS: Metoprolol XL (24 HR) Succ 25 MG TAB.ER.24H PO SCH (21:22)
[2022-05-12 04:40] LABS: Basophils # 0.1 K/mcL (0.0-0.2); Basophils % 1.4 %; Eosinophils # 0.1 K/mcL (0.0-0.6); Eosinophils % 1.3 %; Hematocrit 32.6 % (37.5-50.1); Hemoglobin 10.8 g/dL (12.9-16.9); Immature Granulocytes % 0.1 % (0-4); Lymphocytes # 4.1 K/mcL (0.6-4.6); Lymphocytes % 48.2 %; Mean Corpuscular HGB Conc 33.1 g/dL (31.6-35.5); Mean Corpuscular Hemoglobin 31.3 pg (28.0-33.3); Mean Corpuscular Volume 94.5 fL (83.0-100.0); Monocytes # 0.7 K/mcL (0.0-1.3); Monocytes % 8.6 %; Neutrophils # 3.5 K/mcL (1.6-8.9); Platelet Count 232 K/mcL (140-400); Red Blood Count 3.45 M/mcL (4.19-5.50); Red Cell Distribution Width 14.5 % (11.5-14.5); Segmented Neutrophils % 40.4 %; White Blood Count 8.6 K/mcL (4.3-11.1)
[2022-05-12 04:51] LABS: INR 1.6; Prothrombin Time 17.4 Seconds (9.4-12.1)
[2022-05-12 05:04] LABS: Alanine Aminotransferase 166 Units/L (7-52); Albumin 3.3 g/dL (3.5-5.7); Albumin/Globulin Ratio 1.5 (1.1-2.2); Alkaline Phosphatase 108 Units/L (34-104); Aspartate Amino Transferase 98 Units/L (13-39); BUN/Creatinine Ratio 16 (6-26); Bilirubin,Total 2.3 mg/dL (0.3-1.0); Blood Urea Nitrogen 15 mg/dL (6-20); Calcium 8.6 mg/dL (8.6-10.3); Carbon Dioxide 21 mEq/L (23-29); Chloride 105 mEq/L (98-107); Globulin 2.2 g/dL (2.4-3.5); Glucose 76 mg/dL (70-105); Osmolality,Calculated 284 (280-300); Potassium 3.2 mEq/L (3.5-5.1); Sodium 137 mEq/L (136-145); Total Protein 5.5 g/dL (6.4-8.9); Troponin I 0.06 ng/mL (< 0.04)
[2022-05-12] MEDS: *HR* Digoxin 0.125 MG TABLET PO SCH (09:41)
[2022-05-12] MEDS: *HR* Ticagrelor 90 MG TABLET PO SCH ×2 (11:35→20:55)
[2022-05-12] MEDS: Metoprolol XL (24 HR) Succ 25 MG TAB.ER.24H PO SCH ×2 (16:00→20:55)
[2022-05-12] MEDS: Furosemide 20 MG/2 ML VIAL IVP SCH (16:04)
[2022-05-12] MEDS: Heparin 25,000UNIT/250ML 1/2NS 25,000 UNIT/250 ML IV.SOLN IVC SCH (17:30)
[2022-05-12] MEDS ORDERED: Warfarin perPT PO PRN (18:00)
[2022-05-12] MEDS ORDERED: *HR* Warfarin 2.5 MG TABLET PO ONE (18:00)
[2022-05-12] MEDS: *HR* Heparin 5,000 UNIT/ML VIAL IVP PRN (18:09)
[2022-05-13 00:58] LABS: Hemoglobin 11.9 g/dL (12.9-16.9); Mean Corpuscular HGB Conc 33.1 g/dL (31.6-35.5); Mean Corpuscular Hemoglobin 31.3 pg (28.0-33.3); Mean Corpuscular Volume 94.7 fL (83.0-100.0); Mean Platelet Volume 10.7 fL (9.4-12.4); Platelet Count 241 K/mcL (140-400); Red Cell Distribution Width 14.6 % (11.5-14.5); White Blood Count 9.7 K/mcL (4.3-11.1)
[2022-05-13 01:10] LABS: Heparin anti-factor XA UFH 0.29 IU/mL (0.30-0.70); INR 1.4; Prothrombin Time 15.5 Seconds (9.4-12.1)
[2022-05-13 01:26] LABS: Alanine Aminotransferase 139 Units/L (7-52); Albumin 3.6 g/dL (3.5-5.7); Albumin/Globulin Ratio 1.3 (1.1-2.2); Alkaline Phosphatase 113 Units/L (34-104); Aspartate Amino Transferase 55 Units/L (13-39); BUN/Creatinine Ratio 16 (6-26); Bilirubin,Direct 0.3 mg/dL (0.0-0.2); Bilirubin,Indirect 2.3 mg/dL (0.0-1.0); Bilirubin,Total 2.6 mg/dL (0.3-1.0); Blood Urea Nitrogen 13 mg/dL (6-20); Calcium 9.1 mg/dL (8.6-10.3); Carbon Dioxide 21 mEq/L (23-29); Chloride 104 mEq/L (98-107); Globulin 2.7 g/dL (2.4-3.5); Glucose 86 mg/dL (70-105); Magnesium 1.6 mg/dL (1.6-2.6); Osmolality,Calculated 281 (280-300); Potassium 3.7 mEq/L (3.5-5.1); Sodium 136 mEq/L (136-145); Total Protein 6.3 g/dL (6.4-8.9)
[2022-05-13] MEDS: *HR* Heparin 5,000 UNIT/ML VIAL IVP PRN (01:32)
[2022-05-13] MEDS: Furosemide 20 MG/2 ML VIAL IVP SCH (09:03)
[2022-05-13] MEDS: Metoprolol XL (24 HR) Succ 25 MG TAB.ER.24H PO SCH ×2 (09:04→19:55)
[2022-05-13] MEDS: *HR* Ticagrelor 90 MG TABLET PO SCH ×2 (09:04→19:55)
[2022-05-13] MEDS: *HR* Digoxin 0.125 MG TABLET PO SCH (09:05)
[2022-05-13] MEDS: Heparin 25,000UNIT/250ML 1/2NS 25,000 UNIT/250 ML IV.SOLN IVC SCH (15:19)
[2022-05-13] MEDS ORDERED: *HR* Warfarin 2.5 MG TABLET PO ONE (18:00)
[2022-05-14 00:54] LABS: Hematocrit 38.5 % (37.5-50.1); Hemoglobin 12.5 g/dL (12.9-16.9); Mean Corpuscular HGB Conc 32.5 g/dL (31.6-35.5); Mean Corpuscular Hemoglobin 30.9 pg (28.0-33.3); Mean Corpuscular Volume 95.1 fL (83.0-100.0); Mean Platelet Volume 11.1 fL (9.4-12.4); Platelet Count 276 K/mcL (140-400); Red Blood Count 4.05 M/mcL (4.19-5.50); Red Cell Distribution Width 14.6 % (11.5-14.5); White Blood Count 9.5 K/mcL (4.3-11.1)
[2022-05-14 00:56] LABS: INR 1.2; Prothrombin Time 13.9 Seconds (9.4-12.1)
[2022-05-14 01:05] LABS: BUN/Creatinine Ratio 20 (6-26); Blood Urea Nitrogen 17 mg/dL (6-20); Calcium 9.3 mg/dL (8.6-10.3); Carbon Dioxide 21 mEq/L (23-29); Chloride 104 mEq/L (98-107); Glucose 104 mg/dL (70-105); Osmolality,Calculated 284 (280-300); Potassium 3.5 mEq/L (3.5-5.1); Sodium 136 mEq/L (136-145)
[2022-05-14] MEDS: Ipratropium/Albuterol Neb 3 ML IH PRN ×2 (04:11→16:13)
[2022-05-14] MEDS: *HR* Digoxin 0.125 MG TABLET PO SCH (07:53)
[2022-05-14] MEDS: *HR* Ticagrelor 90 MG TABLET PO SCH ×2 (07:54→19:49)
[2022-05-14] MEDS: Metoprolol XL (24 HR) Succ 25 MG TAB.ER.24H PO SCH (07:54)
[2022-05-14] MEDS ORDERED: Furosemide 20 MG TABLET PO SCH (09:00)
[2022-05-14] MEDS: 0.9 % Sodium Chloride 500 ML IVC SCH (12:56)
[2022-05-14] MEDS ORDERED: *HR* Warfarin 4 MG TABLET PO ONE (18:00)
[2022-05-15] MEDS: Heparin 25,000UNIT/250ML 1/2NS 25,000 UNIT/250 ML IV.SOLN IVC SCH ×2 (02:24→19:53)
[2022-05-15] MEDS: 0.9 % Sodium Chloride 500 ML IVC SCH (05:34)
[2022-05-15] MEDS: Ipratropium/Albuterol Neb 3 ML IH PRN ×2 (06:17→15:51)
[2022-05-15] MEDS: *HR* Digoxin 0.125 MG TABLET PO SCH (08:09)
[2022-05-15] MEDS: *HR* Ticagrelor 90 MG TABLET PO SCH ×2 (08:10→19:53)
[2022-05-15] MEDS: Metoprolol XL (24 HR) Succ 25 MG TAB.ER.24H PO SCH (08:10)
[2022-05-15] MEDS: Furosemide 20 MG TABLET PO SCH (08:19)
[2022-05-15 08:35] LABS: INR 1.3; Prothrombin Time 14.9 Seconds (9.4-12.1)
[2022-05-15] MEDS ORDERED: *HR* Warfarin 4 MG TABLET PO ONE (18:00)
[2022-05-16] MEDS: Ipratropium/Albuterol Neb 3 ML IH PRN ×3 (00:21→20:30)
[2022-05-16 02:07] LABS: BUN/Creatinine Ratio 23 (6-26); Blood Urea Nitrogen 17 mg/dL (6-20); Calcium 8.9 mg/dL (8.6-10.3); Carbon Dioxide 24 mEq/L (23-29); Chloride 104 mEq/L (98-107); Glucose 87 mg/dL (70-105); Osmolality,Calculated 287 (280-300); Potassium 3.4 mEq/L (3.5-5.1); Sodium 138 mEq/L (136-145)
[2022-05-16 02:31] LABS: INR 1.3; Prothrombin Time 14.6 Seconds (9.4-12.1)
[2022-05-16] MEDS: 0.9 % Sodium Chloride 500 ML IVC SCH (05:31)
[2022-05-16] MEDS: *HR* Digoxin 0.125 MG TABLET PO SCH (09:36)
[2022-05-16] MEDS: Metoprolol XL (24 HR) Succ 25 MG TAB.ER.24H PO SCH (09:36)
[2022-05-16] MEDS: Furosemide 20 MG TABLET PO SCH (09:36)
[2022-05-16] MEDS: Heparin 25,000UNIT/250ML 1/2NS 25,000 UNIT/250 ML IV.SOLN IVC SCH (11:58)
[2022-05-16] MEDS ORDERED: *HR* Warfarin 5 MG TABLET PO ONE (18:00)
[2022-05-17] MEDS: 0.9 % Sodium Chloride 500 ML IVC SCH ×2 (02:38→18:45)
[2022-05-17] MEDS: Heparin 25,000UNIT/250ML 1/2NS 25,000 UNIT/250 ML IV.SOLN IVC SCH ×2 (02:39→19:59)
[2022-05-17 05:14] LABS: INR 1.5; Prothrombin Time 17.1 Seconds (9.4-12.1)
[2022-05-17] MEDS: Metoprolol XL (24 HR) Succ 25 MG TAB.ER.24H PO SCH (08:44)
[2022-05-17] MEDS: Furosemide 20 MG TABLET PO SCH (08:44)
[2022-05-17] MEDS: *HR* Digoxin 0.125 MG TABLET PO SCH (08:45)
[2022-05-17] MEDS: Ipratropium/Albuterol Neb 3 ML IH PRN (09:22)
[2022-05-17] MEDS ORDERED: *HR* Warfarin 4 MG TABLET PO ONE (18:00)
[2022-05-18 08:00] LABS: INR 1.8; Prothrombin Time 20.3 Seconds (9.4-12.1)
[2022-05-18] MEDS: Metoprolol XL (24 HR) Succ 25 MG TAB.ER.24H PO SCH (09:15)
[2022-05-18] MEDS: Furosemide 20 MG TABLET PO SCH (09:15)
[2022-05-18] MEDS: *HR* Digoxin 0.125 MG TABLET PO SCH (09:15)
[2022-05-18] MEDS: Heparin 25,000UNIT/250ML 1/2NS 25,000 UNIT/250 ML IV.SOLN IVC SCH (13:33)
[2022-05-18] MEDS: 0.9 % Sodium Chloride 500 ML IVC SCH (14:33)
[2022-05-18 16:21] LABS: Adenovirus F 40/41 PCR Not detected (Not detect); Astrovirus PCR Not detected (Not detect); C.difficile Toxin A/B Gene PCR Not detected (Not detect); Campylobacter by PCR Not detected (Not detect); Cryptosporidium by PCR Not detected (Not detect); Cyclospora cayetanensis PCR Not detected (Not detect); Entamoeba histolytica PCR Not detected (Not detect); Enteroaggregative E.coli(EAEC) Not detected (Not detect); Enteropathogenic E.coli(EPEC) Not detected (Not detect); Enterotoxigenic E.coli (ETEC) Not detected (Not detect); Giardia lamblia PCR Not detected (Not detect); Norovirus GI/GII PCR Not detected (Not detect); Plesiomonas shigelloides PCR Not detected (Not detect); Rotavirus A PCR Not detected (Not detect); Salmonella PCR Not detected (Not detect); Shig/EnteroinvasiveE coli EIEC Not detected (Not detect); Shigalike tox-prod E coli STEC Not detected (Not detect); Vibrio PCR Not detected (Not detect); Vibrio cholerae PCR Not detected (Not detect); Yersinia enterocolitica PCR Not detected (Not detect)
[2022-05-18 16:22] LABS: Sapovirus PCR Not detected (Not detect)
[2022-05-18] MEDS ORDERED: *HR* Warfarin 4 MG TABLET PO ONE (18:00)
[2022-05-19 05:47] LABS: INR 2.3; Prothrombin Time 25.1 Seconds (9.4-12.1)
[2022-05-19] MEDS: Metoprolol XL (24 HR) Succ 25 MG TAB.ER.24H PO SCH (08:33)
[2022-05-19] MEDS: Furosemide 20 MG TABLET PO SCH (08:33)
[2022-05-19] MEDS: *HR* Digoxin 0.125 MG TABLET PO SCH (08:33)
[2022-05-19 08:37] VITALS: O2SAT 92
[2022-05-19 08:39] VITALS: BP 91/67; PULSE 108; TEMP 97.2
[2022-05-19] MEDS ORDERED: Warfarin 0.5 MG, Warfarin 3 MG PO ONE (18:00)
== END 2022-05-19 11:02 | disposition home health service (06) | DRG 281 ==
LOC: 2NENU → SUATTDRO 05-12 14:23
PROVIDERS: ADMIT Internal Medicine; ATTEND Internal Medicine